=== PATIENT | male | born 1990 | race Caucasian/White ===

== ENCOUNTER 2017-09-29 08:57 | Emergency (ER) | payer SELFPAY ==
[~2017-09-29] VITALS: Ht 188 cm; Wt 81.7 kg
== END 2017-09-29 09:28 | disposition home or self-care (01) ==
LOC: ED 08:57
DX: K08.89 Other specified disorders of teeth and supporting structures (principal)

== ENCOUNTER 2017-10-08 09:44 | Emergency (ER) | payer OTHER ==
[~2017-10-08] VITALS: Ht 188 cm; Wt 86.2 kg
[2017-10-08] MEDS ORDERED: CLEOCIN HCL300 MG PO (10:10)
[2017-10-08] MEDS ORDERED: VISTARIL25 MG PO (10:10)
== END 2017-10-08 10:18 | disposition home or self-care (01) ==
LOC: ED 09:44
DX: F41.9 Anxiety disorder, unspecified (principal); K02.9 Dental caries, unspecified; F17.200 Nicotine dependence, unspecified, uncomplicated; Z88.1 Allergy status to other antibiotic agents
CPT/HCPCS: 99283